=== PATIENT | female | born 1990 ===

== ENCOUNTER 2017-05-10 11:25 | Emergency (ER) | payer SELFPAY ==
[2017-05-10 11:48] VITALS: TEMP 98
--- NOTE | 2017-05-10 12:05 | ED PDOC ---
HPI: Trauma/Fall - HPI Time Seen by Provider: 05/10/17 11:34 Chief Complaint (Nursing): Trauma Chief Complaint (Provider): S/p Accidental Fall History Per: Patient History/Exam Limitations: no limitations Onset/Duration Of Symptoms: Hrs (morning prior to arrival ) Additional Complaint(s): Hina Hollis is a 26 year old female presenting to the ED status post accidental fall occurring this morning. The patient states while she was on a ladder this morning, she fell and landed on her buttocks/lower back area. The patient is complaining of pain to her buttocks and lower back area. She denies head injury, any injury to her extremities, loss of consciousness, chest pain, neck pain, arm pain, shoulder pain, hand pain, foot pain, shortness of breath, abdominal pain, dysuria, incontinence, urinary frequency, numbness, tingling, weakness, dizziness, or incoordination. PMD: None Provided Past Medical History Reviewed: Historical Data, Nursing Documentation, Vital Signs Vital Signs: Last Vital Signs Temp 98 F 05/10/17 11:42 Pulse 78 05/10/17 11:42 Resp 18 05/10/17 11:42 BP 151/83 H 05/10/17 11:42 Pulse Ox 99 05/10/17 11:42 - Medical History PMH: No Chronic Diseases - Family History Family History: States: Unknown Family Hx - Social History Current smoker - smoking cessation education provided: No Ex-Smoker (has not smoked in the last 12 months): No Alcohol: None Drugs: Denies - Home Medications Home Medications: Ambulatory Orders Medication Instructions Recorded Ibuprofen [Motrin] 600 mg PO TID 7 Days tab 05/10/17 - Allergies Allergies/Adverse Reactions: Allergies Allergy/AdvReac Type Severity Reaction Status Date / Time Penicillins Allergy RASH Verified 05/10/17 11:42 Review of Systems ROS Statement: Except As Marked, All Systems Reviewed And Found Negative Constitutional: Negative for: Weakness Cardiovascular: Negative for: Chest Pain Respiratory: Negative for: Shortness of Breath Gastrointestinal: Negative for: Abdominal Pain Genitourinary Female: Negative for: Dysuria, Frequency, Incontinence Musculoskeletal: Positive for: Back Pain (tenderness to lower back and buttocks area). Negative for: Neck Pain, Shoulder Pain, Arm Pain, Hand Pain, Foot Pain Neurological: Negative for: Weakness, Numbness, Incoordination, Headache, Dizziness Physical Exam - Reviewed Nursing Documentation Reviewed: Yes Vital Signs Reviewed: Yes - Physical Exam Appears: Positive for: Non-toxic, No Acute Distress Head Exam: Positive for: ATRAUMATIC, NORMOCEPHALIC Skin: Positive for: Normal Color, Warm, Dry Eye Exam: Positive for: Normal appearance, EOMI, PERRL ENT: Positive for: Normal ENT Inspection Neck: Positive for: Normal, Painless ROM Cardiovascular/Chest: Positive for: Regular Rate, Rhythm, Chest Non Tender Respiratory: Positive for: Normal Breath Sounds. Negative for: Respiratory Distress Gastrointestinal/Abdominal: Positive for: Normal Exam, Soft. Negative for: Tenderness Back: Positive for: Vertebral Tenderness (tenderness across lower back ) Extremity: Positive for: Other (right lower extremity: positive straight leg raise to 30 degrees; left lower extremity: negative straight leg raise ). Negative for: Deformity Neurologic/Psych: Positive for: Alert, Oriented (x3). Negative for: Motor/ Sensory Deficits - Laboratory Results Interpretation Of Abn Labs: bhcg less 2.39 - ECG O2 Sat by Pulse Oximetry: 99 (RA) Pulse Ox Interpretation: Normal - Radiology X-Ray: Interpreted by Me, Viewed By Me X-Ray Interpretation: No Acute Disease - Progress ED Course And Treament: 1522: Stable. AAOx3. Pain free. Tolerated PO. Fu with pcp. Ambulated with no issues. Medical Decision Making Medical Decision Making: Time: 11:34 Impression: S/p Accidental Fall with tenderness across lower back Plan: * ED urine * Urine Dip * Tylenol 325 mg tab 975 mg PO * [RAD] Lumbar Spine Complete * [RAD] Hip Min 2V W/ Pelvis Right * Reevaluation Scribe Attestation: Documented by Pearl Orona, acting as a scribe for Chino Huston MD. Provider Scribe Attestation: All medical record entries made by the Scribe were at my direction and personally dictated by me. I have reviewed the chart and agree that the record accurately reflects my personal performance of the history, physical exam, medical decision making, and the department course for this patient. I have also personally directed, reviewed, and agree with the discharge instructions and disposition. Disposition - Clinical Impression Clinical Impression: Back injury - Patient ED Disposition Is Patient to be Admitted: No Counseled Patient/Family Regarding: Studies Performed, Diagnosis, Need For Followup, Rx Given - Disposition Referrals: [facility] [Outside] - 05/11/17 Disposition: Routine/Home Disposition Time: 15:23 Condition: STABLE Additional Instructions: Return if not better in 3 days. Prescriptions: Ibuprofen [Motrin] 600 mg PO TID 7 Days tab Instructions: Acute Low Back Pain (ED) Print Language: DIVEHI
[2017-05-10 16:11] VITALS: BP 125/79; PULSE 81; RESP 16; O2SAT 100
--- NOTE | 2017-05-10 16:16 | RAD ---
PROCEDURE: Pelvis, right hip HISTORY: Pain. No history of recent/ related trauma provided COMPARISON: None TECHNIQUE: Standard protocol for this study/examination. FINDINGS: There are no osseous abnormalities to suggest fracture. The pelvic ring is intact. Preserved femoral-acetabular relationship. Negative study for protrusio, subluxation or dislocation. Degenerative changes: None. IMPRESSION: No significant or acute findings to account for/ related to the clinical presentation. Concordant results with the preliminary interpretation rendered by the emergency department physician procedure.
--- NOTE | 2017-05-10 16:16 | RAD ---
PROCEDURE: Radiographs of the Lumbar Spine. HISTORY: back pain COMPARISON: No prior. FINDINGS: BONES: Normal alignment. No listhesis. No fracture. DISC SPACES: Unremarkable. OTHER FINDINGS: Intrauterine contraceptive device (IUD) identified IMPRESSION: No significant or acute findings to account for/ related to the clinical presentation.
== END 2017-05-10 16:10 | disposition home or self-care (01) ==
LOC: H.ER 11:25
DX: S39.92XA Unspecified injury of lower back, initial encounter (principal); W11.XXXA Fall on and from ladder, initial encounter; Y92.89 Other specified places as the place of occurrence of the external cause; Z88.0 Allergy status to penicillin
CPT/HCPCS: 72114; 73502; 81025; 84702; 96372; 99285; J1885

== ENCOUNTER 2017-08-12 18:27 | Emergency (ER) | payer OTHER ==
[2017-08-12 18:53] VITALS: BP 145/68; PULSE 66; RESP 18; TEMP 98.7; O2SAT 98
--- NOTE | 2017-08-12 19:56 | ED PDOC ---
HPI: Female Pain Chief Complaint (Provider): vaginal bleeding History Per: Patient History/Exam Limitations: no limitations Onset/Duration Of Symptoms: Hrs Current Symptoms Are (Timing): Still Present Severity: Moderate Pain Scale Rating Of: 5 Quality Of Discomfort: Aching, Cramping (pelvic pain) Associated Symptoms: Nausea, Back Pain (lower back pain). denies: Fever, Chills , Vomiting, Urinary Symptoms Alleviating Factors: None Additional Complaint(s): 27 yr old presents to ED with complaint of vaginal bleeding (clots and tissue material) which started this morning and required 3 sanitary napkin changes throughout the day. PMHx includes padmini-metrorrhagia since menarche. Patient reports she had her IUD removed this past monday and started taking Orthotricyclen, she was also prescribed Metronidazole for a vaginal infection- she cannot recall her diagnosis. Her last vaginal bleeding was this past monday when she had sexual intercourse. Her IUD had been placed in 2014 and she had it removed because it caused her heavy vaginal bleeding and vaginal discharge. Associated symptoms include nausea, achy/crampy pelvic pain and achy lower back pain. Denies chest pain, SOB, dizziness or dysuria. Patient has not tried anything to alleviate the pain, nothing worsens the pain. PMD: [facility] ([address] [place] [address]) LMP: 03/2017 Last vaginal bleedin08/08/17-self limited after sexual intercourse ObGynHx: ; s/p pre-eclampsia 08/2014, vaginal infection dx on PMHx: obesity, padmini-metrorrhagia since menarche SurgHx: 08/2014 FMHx: non-contributory SocHx: denies tobacco/Etoh or drugs Medications: Orthocyclen Lo, Metronidazole 500mg PO BID x 14 days (on day 14) Allergies: Penicillin -rash and vomiting Abnormal Vaginal Bleeding: Yes Last Menstral Period: 5 months ago, has self limited vaginal bleeding with sexual intercourse : 1 Para: 1 <Katelin Logan - Last Filed: 08/12/17 21:58> <Ajit Lara - Last Filed: 08/12/17 22:14> Time Seen by Provider: 08/12/17 19:20 Chief Complaint (Nursing): Female Genitourinary Supervising Attending Note - Attestation: I have personally seen and examined this patient.: Yes I have fully participated in the care of the patient.: Yes I have reviewed all pertinent clinical information, including history, physical exam and plan: Yes <Ajit Lara - Last Filed: 08/12/17 22:14> Past Medical History Vital Signs: Last Vital Signs Temp 98.7 F 08/12/17 18:49 Pulse 66 08/12/17 18:49 Resp 18 08/12/17 18:49 BP 145/68 08/12/17 18:49 Pulse Ox 98 08/12/17 18:49 - Medical History PMH: No Chronic Diseases - Surgical History Surgical History: (08/2014 s/p pre-eclampsia) - Family History Family History: States: Unknown Family Hx - Living Arrangements Living Arrangements: Other (with son partner) - Social History Current smoker - smoking cessation education provided: No Alcohol: None Drugs: Denies <Katelin Logan - Last Filed: 08/12/17 21:58> Vital Signs: Last Vital Signs Temp 98.7 F 08/12/17 18:49 Pulse 66 08/12/17 18:49 Resp 18 08/12/17 18:49 BP 145/68 08/12/17 18:49 Pulse Ox 98 08/12/17 21:58 <Ajit Lara - Last Filed: 08/12/17 22:14> - Home Medications Home Medications: Ambulatory Orders Medication Instructions Recorded Ibuprofen [Motrin] 600 mg PO TID 7 Days tab 05/10/17 Ibuprofen [Motrin Tab] 600 mg PO Q6 #30 tab 08/12/17 - Allergies Allergies/Adverse Reactions: Allergies Allergy/AdvReac Type Severity Reaction Status Date / Time Penicillins Allergy RASH Verified 08/12/17 18:49 Review of Systems Constitutional: Negative for: Fever, Chills Eyes: Negative for: Vision Change ENT: Negative for: Ear Pain, Ear Discharge Cardiovascular: Negative for: Chest Pain, Palpitations, Edema, Light Headedness Respiratory: Negative for: Cough, Shortness of Breath Gastrointestinal: Positive for: Nausea, Abdominal Pain. Negative for: Vomiting , Diarrhea Genitourinary Female: Positive for: Vaginal Bleeding, Pelvic Pain. Negative for : Dysuria Musculoskeletal: Negative for: Neck Pain, Shoulder Pain Skin: Negative for: Rash, Lesions Neurological: Negative for: Weakness, Headache, Dizziness Psych: Negative for: Anxiety, Depression <Katelin Logan - Last Filed: 08/12/17 21:58> Physical Exam - Physical Exam Head Exam: Positive for: ATRAUMATIC, NORMOCEPHALIC Skin: Positive for: Normal Color, Warm, Dry. Negative for: Pallor Eye Exam: Positive for: EOMI, PERRL Neck: Positive for: Normal Cardiovascular/Chest: Positive for: Regular Rate, Rhythm. Negative for: Murmur Respiratory: Positive for: Normal Breath Sounds. Negative for: Rales, Rhonchi Pulses-Carotid (L): 2+ Pulses-Carotid (R): 2+ Pulses-Dorsalis Pedis (L): 2+ Pulses-Dorsalis Pedis (R): 2+ Pulses-Radial (L): 2+ Pulses-Radial (R): 2+ Gastrointestinal/Abdominal: Positive for: Soft, Tenderness (moderate tenderness in periumbilical and left upper and lower quadrant) Pelvic Exam: Positive for: Blood (blood clots in vaginal vault and at external cervical os, cervical os dilated fingertip). Negative for: No Cerv. Motion Tender, Cervicitis, Lesions Back: Positive for: Normal Inspection Extremity: Positive for: Normal ROM. Negative for: Pedal Edema, Calf Tenderness , Swelling Neurologic/Psych: Positive for: Alert, meat wrapper II-XII, Oriented, Mood/Affect (normal /normal), Gait (normal) <Katelin Logan - Last Filed: 08/12/17 21:58> - Laboratory Results Result Diagrams: 08/12/17 20:25 - ECG O2 Sat by Pulse Oximetry: 98 <Katelin Logan - Last Filed: 08/12/17 21:58> - Laboratory Results Result Diagrams: 08/12/17 20:25 <Ajit Lara - Last Filed: 08/12/17 22:14> Medical Decision Making Medical Decision Making: -Udip: negative -serum BHcg < 2.39, CBC wnl, CMP wnl, speculum exam: moderate amount blood/ clots in vaginal vault, external cervical os fingertip <Katelin Logan - Last Filed: 08/12/17 21:58> Disposition - Patient ED Disposition Is Patient to be Admitted: No - Disposition Disposition: Routine/Home Disposition Time: 21:51 <Katelin Logan - Last Filed: 08/12/17 21:58> <Ajit Lara - Last Filed: 08/12/17 22:14> - Clinical Impression Clinical Impression: Vaginal bleeding - Disposition Referrals: [facility] [Outside] Condition: FAIR Additional Instructions: Follow up with PMD within 1 week, continue home medications as prescribed, take Ibuprofen 600mg PO Q6 with food PRN for pain Prescriptions: Ibuprofen [Motrin Tab] 600 mg PO Q6 #30 tab Forms: [employer] (Kinyarwanda) Print Language: PALESTINIAN
[2017-08-12 20:40] LABS: BASO # 0.1 K/uL (0.0-0.2); BASO % 0.4 % (0.0-2.0); EOS # 0.1 K/uL (0.0-0.7); EOS % 0.6 % (0.0-4.0); HEMOGLOBIN 12.6 g/dL (12.0-16.0); LYMPH # 2.6 K/uL (1.0-4.3); LYMPH % 18.4 % (20.0-40.0); MEAN CELL VOLUME 92.5 fl (81.0-99.0); MEAN CORPUSCULAR HEMOGLOBIN 30.9 pg (27.0-31.0); MEAN CORPUSCULAR HGB CONC 33.4 g/dL (33.0-37.0); MEAN PLATELET VOLUME 10.2 fl (7.2-11.7); MONO # 0.8 K/uL (0.0-0.8); MONO % 5.5 % (0.0-10.0); NEUT # 10.5 K/uL (1.8-7.0); NEUT % 75.1 % (50.0-75.0); RBC 4.07 Mil/uL (3.80-5.20); RED CELL DISTRIBUTION WIDTH 12.9 % (11.5-14.5)
== END 2017-08-12 22:38 | disposition home or self-care (01) ==
LOC: H.ER 18:27
DX: N93.9 Abnormal uterine and vaginal bleeding, unspecified (principal); E66.9 Obesity, unspecified; Z88.0 Allergy status to penicillin

== ENCOUNTER 2017-08-30 14:11 | Emergency (ER) | payer OTHER ==
[2017-08-30 14:22] VITALS: BP 136/73; PULSE 64; RESP 18; TEMP 98; O2SAT 99
--- NOTE | 2017-08-30 14:36 | ED PDOC ---
HPI: Neurologic - General Time Seen by Provider: 08/30/17 14:28 Chief Complaint (Nursing): ENT Problem Source: patient - History of Present Illness Timing/Duration: 24 hours Severity: moderate Episode Description: Left facial weakness and numbness since yesterday. Unable to close left eye Associated Symptoms: denies: numbness in legs/feet, slurred speech, trouble walking, vision changes, weakness Allergies/Adverse Reactions: Allergies Penicillins Allergy (Verified 08/30/17 14:20) RASH Home Medications: Ambulatory Orders Ibuprofen [Motrin] 600 mg PO TID 7 Days tab 05/10/17 Ibuprofen [Motrin Tab] 600 mg PO Q6 #30 tab 08/12/17 Dextran 70/Hypromellose/Pf [Artificial Tears Drops] 1 drop OS Q2 #1 droperette 08/30/17 Valacyclovir HCl [Valtrex] 1 gm PO TID #30 tablet 08/30/17 predniSONE [predniSONE Tab] 10 mg PO TID #15 tab 08/30/17 Past Medical History Vital Signs: Last Vital Signs Temp 98 F 08/30/17 14:20 Pulse 64 08/30/17 14:20 Resp 18 08/30/17 14:20 BP 136/73 08/30/17 14:20 Pulse Ox 99 08/30/17 14:20 - Medical History PMH: No Chronic Diseases - Surgical History Surgical History: (08/2014 s/p pre-eclampsia) - Family History Family History: States: Unknown Family Hx - Home Medications Home Medications: Ambulatory Orders Medication Instructions Recorded Ibuprofen [Motrin] 600 mg PO TID 7 Days tab 05/10/17 Ibuprofen [Motrin Tab] 600 mg PO Q6 #30 tab 08/12/17 Dextran 70/Hypromellose/Pf 1 drop OS Q2 #1 droperette 08/30/17 [Artificial Tears Drops] Valacyclovir HCl [Valtrex] 1 gm PO TID #30 tablet 08/30/17 predniSONE [predniSONE Tab] 10 mg PO TID #15 tab 08/30/17 - Allergies Allergies/Adverse Reactions: Allergies Allergy/AdvReac Type Severity Reaction Status Date / Time Penicillins Allergy RASH Verified 08/30/17 14:20 Review of Systems ROS Statement: Except As Marked, All Systems Reviewed And Found Negative Neurological: Positive for: Weakness, Numbness (Left facial weakness and numbness) Physical Exam - Reviewed Nursing Documentation Reviewed: Yes Vital Signs Reviewed: Yes - Physical Exam Appears: Positive for: Non-toxic, No Acute Distress Head Exam: Positive for: ATRAUMATIC, NORMAL INSPECTION, NORMOCEPHALIC Skin: Positive for: Normal Color, Warm, DRY Eye Exam: Positive for: EOMI, Normal appearance, PERRL ENT: Positive for: Normal ENT Inspection Neck: Positive for: Normal, Painless ROM Cardiovascular/Chest: Positive for: Regular Rate, Rhythm Respiratory: Positive for: CNT, Normal Breath Sounds Gastrointestinal/Abdominal: Positive for: Normal Exam, Bowel Sounds, Soft Back: Positive for: Normal Inspection Extremity: Positive for: Normal ROM Neurologic/Psych: Positive for: Alert, Oriented, Motor/Sensory Deficits (Unable to close left eye, weakness left side of face, numbness left side of face) - ECG O2 Sat by Pulse Oximetry: 99 Disposition - Clinical Impression Clinical Impression: Lovell's palsy - Patient ED Disposition Is Patient to be Admitted: No Counseled Patient/Family Regarding: Studies Performed, Diagnosis, Need For Followup, Rx Given - Disposition Referrals: [facility] [Outside] Disposition: Routine/Home Disposition Time: 15:53 Condition: FAIR Prescriptions: Dextran 70/Hypromellose/Pf [Artificial Tears Drops] 1 drop OS Q2 #1 droperette predniSONE [predniSONE Tab] 10 mg PO TID #15 tab Valacyclovir HCl [Valtrex] 1 gm PO TID #30 tablet Instructions: Lovell Palsy (ED) Forms: [employer] (Cymro) Print Language: EGYPTIAN
--- NOTE | 2017-08-30 15:52 | CT ---
PROCEDURE: CT HEAD WITHOUT CONTRAST. HISTORY: left facial weakness COMPARISON: None available. TECHNIQUE: Axial computed tomography images were obtained through the head/brain without intravenous contrast. Radiation dose: Total exam DLP = 759 mGy-cm. This CT exam was performed using one or more of the following dose reduction techniques: Automated exposure control, adjustment of the mA and/or kV according to patient size, and/or use of iterative reconstruction technique. FINDINGS: HEMORRHAGE: No intracranial hemorrhage. BRAIN: No mass effect or edema. No atrophy or chronic microvascular ischemic changes. VENTRICLES: Unremarkable. No hydrocephalus. CALVARIUM: Unremarkable. PARANASAL SINUSES: Unremarkable as visualized. No significant inflammatory changes. MASTOID AIR CELLS: Unremarkable as visualized. No inflammatory changes. OTHER FINDINGS: None. IMPRESSION: Normal CT of the Head.
== END 2017-08-30 16:14 | disposition home or self-care (01) ==
LOC: H.ER 14:11
DX: G51.0 Bell's palsy (principal); Z88.0 Allergy status to penicillin

== ENCOUNTER 2017-10-20 19:28 | Emergency (ER) | payer SELFPAY ==
[2017-10-20 19:35] VITALS: BP 165/90; PULSE 94; RESP 16; TEMP 98.4; O2SAT 97
[2017-10-20] MEDS ORDERED: Lactated Ringer's 1,000 ML IV STA (19:53)
[2017-10-20 20:43] LABS: BASO % 0.2 % (0.0-2.0); EOS # 0.1 K/uL (0.0-0.7); EOS % 0.7 % (0.0-4.0); LYMPH # 1.9 K/uL (1.0-4.3); LYMPH % 19.5 % (20.0-40.0); MEAN CELL VOLUME 93.4 fl (81.0-99.0); MEAN CORPUSCULAR HEMOGLOBIN 32.3 pg (27.0-31.0); MEAN CORPUSCULAR HGB CONC 34.6 g/dL (33.0-37.0); MEAN PLATELET VOLUME 10.1 fl (7.2-11.7); MONO # 0.6 K/uL (0.0-0.8); MONO % 5.9 % (0.0-10.0); NEUT # 7.1 K/uL (1.8-7.0); NEUT % 73.7 % (50.0-75.0); RBC 4.03 Mil/uL (3.80-5.20); RED CELL DISTRIBUTION WIDTH 13.1 % (11.5-14.5); WHITE BLOOD COUNT 9.6 K/uL (4.8-10.8)
[2017-10-20 20:48] LABS: PARTIAL THROMBOPLASTIN TIME 31.2 Seconds (25.6-37.1)
--- NOTE | 2017-10-20 21:05 | ED PDOC ---
HPI: Female Pain Time Seen by Provider: 10/20/17 19:42 Chief Complaint (Nursing): Female Genitourinary Chief Complaint (Provider): Vaginal bleeding History Per: Patient History/Exam Limitations: no limitations Onset/Duration Of Symptoms: Sudden Onset (just prior to arrival) Current Symptoms Are (Timing): Still Present Additional Complaint(s): 27 yo 8 week female, A0, presents to the ED complaining of vaginal bleeding onset just prior to arrival. Of note, her last menstrual period was on 08/22/17 and she has a history of a . She comes in today because she soaked through underwear, about a pad's worth, and noted that her blood was bright red. She found out she was 1 month ago and has not started any care yet, but she scheduled an appointment with Clinic on November 01, 2017. : 2 Para: 1 Miscarriage: 0 Past Medical History Reviewed: Historical Data, Nursing Documentation, Vital Signs Vital Signs: Last Vital Signs Temp 98.4 F 10/20/17 19:33 Pulse 94 H 10/20/17 19:33 Resp 16 10/20/17 19:33 BP 165/90 H 10/20/17 19:33 Pulse Ox 97 10/20/17 19:33 - Medical History PMH: No Chronic Diseases - Surgical History Surgical History: (08/2014 s/p pre-eclampsia) - Family History Family History: States: Unknown Family Hx - Living Arrangements Living Arrangements: With Family - Social History Current smoker - smoking cessation education provided: No Ex-Smoker (has not smoked in the last 12 months): No Alcohol: None Drugs: Denies - Home Medications Home Medications: Ambulatory Orders Medication Instructions Recorded Ibuprofen [Motrin] 600 mg PO TID 7 Days tab 05/10/17 Ibuprofen [Motrin Tab] 600 mg PO Q6 #30 tab 08/12/17 Dextran 70/Hypromellose/Pf 1 drop OS Q2 #1 droperette 08/30/17 [Artificial Tears Drops] Valacyclovir HCl [Valtrex] 1 gm PO TID #30 tablet 08/30/17 predniSONE [predniSONE Tab] 10 mg PO TID #15 tab 08/30/17 Multivit/Folic Acid/I 1 tab PO DAILY #100 tab 10/20/17 [ Plus] - Allergies Allergies/Adverse Reactions: Allergies Allergy/AdvReac Type Severity Reaction Status Date / Time Penicillins Allergy RASH Verified 10/20/17 19:32 Review of Systems ROS Statement: Except As Marked, All Systems Reviewed And Found Negative Gastrointestinal: Positive for: Nausea, Vomiting. Negative for: Abdominal Pain , Diarrhea Genitourinary Female: Positive for: Vaginal Bleeding Physical Exam - Reviewed Nursing Documentation Reviewed: Yes Vital Signs Reviewed: Yes - Physical Exam Appears: Positive for: Non-toxic, No Acute Distress Head Exam: Positive for: ATRAUMATIC, NORMOCEPHALIC Skin: Positive for: Warm, Dry Eye Exam: Positive for: EOMI, PERRL ENT: Negative for: Pharyngeal Erythema, Tonsillar Exudate Neck: Positive for: Painless ROM, Supple Cardiovascular/Chest: Positive for: Regular Rate, Rhythm. Negative for: Murmur Respiratory: Positive for: Normal Breath Sounds. Negative for: Respiratory Distress Gastrointestinal/Abdominal: Positive for: Soft. Negative for: Tenderness, Mass , Distended, Guarding, Rebound Back: Positive for: Normal Inspection. Negative for: Decreased ROM Extremity: Positive for: Normal ROM. Negative for: Deformity Lymphatic: Negative for: Adenopathy Neurologic/Psych: Positive for: Alert. Negative for: Motor/Sensory Deficits - Laboratory Results Result Diagrams: 10/20/17 20:26 - ECG O2 Sat by Pulse Oximetry: 97 (RA) Pulse Ox Interpretation: Normal Medical Decision Making Medical Decision Making: Time: --19:52 Impression: --Vaginal bleeding in early Differential: -- includes but not limited to: threatened miscarriage; ectopic ; UTI; dehydration Plan: --blood type and screen --beta-hcg, quantitative ---ed urine dip --ed ureine --lactated ringer's --IV insertion --OB transvaginal US - Reassess -- EXAM: US , Transvaginal CLINICAL HISTORY: 27 years old, female; Signs and symptoms; Lmp or gestational age (in weeks): Unknown; Antepartum complications; Bleeding; ; Additional info: Vag bleed preg TECHNIQUE: Real-time transvaginal obstetrical ultrasound of the maternal pelvis and a first trimester with image documentation. Transvaginal imaging was used for better evaluation of the fetus and adnexa. COMPARISON: No relevant prior studies available. FINDINGS: Gestation: Single viable intrauterine with estimated gestational age based upon CRL measurement of 4.4 mm of 6 weeks 1 day. Cardiac activity is seen with a rate of 117 beats per minute. Placenta/amniotic fluid: Cannot be adequately evaluated due to the early gestational age. Uterus/cervix: Cervix measures 4.3 cm in length and is closed. No myometrial mass. Ovaries: Unremarkable. No mass. Free fluid: No free fluid. IMPRESSION: Single viable intrauterine as described. No acute findings. Thank you for allowing us to participate in the care of your patient. Dictated and Authenticated by: Nasir Lopez MD 10/20/2017 9:08 PM Eastern Time ([place] & [place]) Labs unremarkable. Rh + DW [facility] resident, for more urgent follow up appointment with [facility]. Appt will be arranged for next week. Pt will be called Monday for schedulling DW pt findsing and plan of care. Bleeding instructions and reviewed reasons to RTER. Scribe Attestation: Documented by Scott Dos Santos acting as a scribe for Dudley Vasquez MD. Provider Attestation: All medical record entries made by the Scribe were at my direction and personally dictated by me. I have reviewed the chart and agree that the record accurately reflects my personal performance of the history, physical exam, medical decision making, and the department course for this patient. I have also personally directed, reviewed, and agree with the discharge instructions and disposition. Disposition - Clinical Impression Clinical Impression: Threatened Counseled Patient/Family Regarding: Studies Performed, Diagnosis, Need For Followup, Rx Given - [facility]position [facility] - [facility]23[facility]17 Disposition: Routine/Home Disposition Time: 21:30 Condition: GOOD Additional Instructions: LA [facility] TE [facility] EL ES PARA PROGRAMAR JEANINE FIORDALIZA ESTA SEMANA DESCANSE Y AGUSTIN MUCHO RONNA REGRESA A LA GISELL DE EMERGENCIA SI ESTA [place] MAS QUE JEANINE KOTEX CADA JEANINE HORA, MUCHO DOLOR, PERDI CONOSIMIENTO, O OTRAS MALAS SINTOMAS. Prescriptions: Multivit/Folic Acid/I [ Plus] 1 tab PO DAILY #100 tab Instructions: Threatened Miscarriage (DC) Print Language: TOGOLESE
--- NOTE | 2017-10-21 09:17 | US ---
PROCEDURE: OB Pelvic Ultrasound HISTORY: vag bleed preg COMPARISON: None available. FINDINGS: UTERUS: Gestational sac: Single intrauterine gestation. Measures 2.5 cm compatible with estimated gestational age of 7 weeks, 1 day. Yolk sac: Measures 0.3 cm. pole: [place]-rump length measures 0.4 cm compatible with estimated gestational age of 6 weeks, 1 day. Heart rate: 119 bpm. age (Ultrasound estimated): 6 weeks, 5 days Simi-gestational hemorrhage: None. Date of delivery (Ultrasound estimated) : 06/10/2018 Uterus measures 8.4 x 4.9 x 5.4 cm. Normal in size and appearance. CERVIX: Measures 4.3 cm. Long and closed. No cervical abnormality seen. RIGHT OVARY: Measures 2.4 x 2.2 x 2.1 cm. No mass lesion. Normal flow. LEFT OVARY: Measures 2.3 x 1.6 x 2.1 cm. No solid mass. Normal flow. FREE FLUID: None. OTHER FINDINGS: None. IMPRESSION: Single live intrauterine gestation with average ultrasound age of 6 weeks, 5 days. heart rate 119 beats per minute. Cervix long and closed.
== END 2017-10-20 22:26 | disposition home or self-care (01) ==
LOC: H.ER 19:28
DX: O20.0 Threatened abortion (principal); Z3A.08 8 weeks gestation of pregnancy; Z88.0 Allergy status to penicillin
CPT/HCPCS: 76817; 84702; 85025; 85610; 85730; 86850; 86900; 99283; J7120

== ENCOUNTER 2018-05-04 13:37 | Emergency (ER) | payer SELFPAY ==
[2018-05-04 13:51] VITALS: BMI 36.3
[2018-05-04] MEDS ORDERED: Betamethasone Soluspan 30 mg/5mL Inj Susp IM ONE (15:30)
[2018-06-21 14:42] VITALS: BP 120/70; PULSE 90; RESP 18; TEMP 98.1; O2SAT 96
== END 2018-05-04 16:10 | disposition home or self-care (01) ==
LOC: H.EROB2 13:37
DX: O09.93 Supervision of high risk pregnancy, unspecified, third trimester (principal); Z23 Encounter for immunization; Z3A.34 34 weeks gestation of pregnancy

== ENCOUNTER 2018-05-05 14:52 | Emergency (ER) | payer SELFPAY ==
[2018-05-05 15:05] VITALS: BMI 34.0
[2018-05-05] MEDS: Betamethasone Soluspan 30 mg/5mL Inj Susp IM ONE (15:45)
[2018-05-05 20:30] VITALS: BP 118/72; PULSE 64
--- NOTE | 2018-05-05 21:57 | OBHP ---
Datetime: 05/05/2018 15:11 IP Adm Impression: , intrauterine ; No Active Labor IP Chief Complaint Other: Here for methotrexate injection IP Admit Plan: Discharge home Admit Comment, IP Provider: HPI: 27 yo at 34.6 sent over from clinic for 2nd dose of Celestone shot. She has no current complaints. Denies vaginal bleeding, contractions, or gush of fluid via the vagina. Reports good movement. ROS: negative ObHx: Previous pre-eclampsia with severe features at 39 weeks, delivered via PMH: Denies PSH: Family History: Denies Medications: PNV, Aspirin 81mg; Ferrous sulfate 325mg po daily . Allergies: Penicillin- rash OBJECTIVE Heart: S1 and S2 appreciated. No murmurs, gallops or rubs. Lungs: clear air entry bilaterally. Abdomen: Soft, non-tender to palpation, gravid. BP range: 115-129/62-74; HR:82-84 labs: Unavailable Assessment/Plan: 27 yo at 34.5 sent from clinic for 2nd betamethasone shot. She has close mon itoring by [facility] for her history of preeclampsia. Stable blood pressures during triage time and no alar m symptoms present at this time to suggest preeclampsia. Patient has lab work planned for next week. - 12mg Betamethsone given - Patient will follow up with Dr. Alonzo and Dr. Guerrero 05/08/18 (appt scheduled) Discussed with Dr. Anthony Costa, PGY-1 MD [employer] Patient was discussed with the resident and I agree with the above. Pelvic Type - PN: Not Done Extremities - PN: Not Done Abdomen - PN: Normal Back - PN: Not Done Breast - PN: Not Done Lungs - PN: Normal Heart - PN: Normal Thyroid - PN: Not Done Neurologic - PN: Not Done HEENT - PN: Not Done General - PN: Normal FHR - Baseline A Provider: 150 Gestation - Est Wks by US: 34.6 EGA AdmitDate IP: 34.6 Vital Signs Provider: Reviewed; Within Normal Limits IP Chief Complaint: Other NICHD Variability Prov Fetus A: Moderate 6-25bpm NICHD Accel Fetus A IP Provider: 10X10 FHR Category Provider Fetus A: Category I NICHD Decel Fetus A IP Provider: None Genitourinary Exam: Not Done DTRs - PN: Not Done
== END 2018-05-05 16:00 | disposition home or self-care (01) ==
LOC: H.EROB2 14:52
DX: O09.293 Supervision of pregnancy with other poor reproductive or obstetric history, third trimester (principal); Z3A.34 34 weeks gestation of pregnancy; Z23 Encounter for immunization
CPT/HCPCS: 96372; 99281; J0702

== ENCOUNTER 2018-05-08 10:09 | Emergency (ER) | payer SELFPAY, MEDICAID ==
[2018-05-08 11:16] VITALS: BMI 34.2
[2018-05-08 11:41] LABS: SQUAMOUS EPITHIAL 8 /hpf (0-5); URINE BACTERIA MOD (<OCC); URINE BILIRUBIN NEGATIVE (NEGATIVE); URINE BLOOD NEGATIVE (NEGATIVE); URINE CLARITY CLOUDY (Clear); URINE COLOR YELLOW (YELLOW); URINE GLUCOSE (UA) NEG (Normal); URINE LEUKOCYTE ESTERASE NEG Leu/uL (Negative); URINE PROTEIN NEGATIVE (NEGATIVE); URINE UROBILINOGEN 0.2-1.0 mg/dL (0.2-1.0)
[2018-05-08 16:54] VITALS: BP 130/73; PULSE 79; RESP 18; TEMP 98.5
--- NOTE | 2018-05-09 07:47 | OBHP ---
Datetime: 05/08/2018 11:37 IP Adm Impression: , intrauterine ; No Active Labor; Intact Membranes IP Admit Plan: Observation/Evaluation; Discharge home Admit Comment, IP Provider: 27-year-old at 35.2 (confirmed via 1st tri ultrasound at 6 weeks) p resents for lower abdominal and lower back pain. Pain has been present since 6 pm laast night, about 16 hours prior to presentation, and is worse when she is lying down and walking. She also complains o f mild pain with urinating with white discharge also present since yesterday. Her previous resulted in an emergency CS due to preeclampsia and rising BP. Her BP thorugh this has been WNL as per patient. She is seen in [facility] and has her next appointment today. Pain is lower abdomen and radiates to the lower back. she denies loss of fluid or vaginal bleeding and reports good move ment. She has mild headaches and threw up yesterday twice but denies change in vision, syncope, chest pain, shortness of breath and diarrhea. : CHF - Dr Guerrero PMH: denies Allergies: Penicillin - itching rash Meds: ASA 81 through Social: denies Family: noncontributory OBHx: 1 x C/S d/t severe preeclampsia 2014 (LFTs and HTN) ROS: She has mild headaches and threw up yesterday twice but denies change in vision, syncope, juan st pain, shortness of breath and diarrhea. PE: comfortable, in no acute distress CV: RRR Resp: no respiratory distress Abd: no tenderness to palpation, no RUQ pain Pelvic: clinical manager home care present. /0/-3. no blood seen. no lesions noted. Labs: GBS unknown, HIV neg, GC/CL neg, HbsAg neg, RPR unknown, Rubella immune, Bloods (O+ antibody neg) Assessment: 27-year-old at 35.2 (confirmed via 1st tri ultrasound at 6 weeks) presents for lo wer abdominal pain, lower back pain and urinary pain with dark white discharge (16 hours after onset) . Plan: -NST: reactive, Category 1 tracing (FHR 130, accelerations 15x15, no decelerations, moderate varia bility) -No contractions noted on tracing -VE: 1/0/-3, no blood, no lesions -Urinalysis and Culture sent, patient given Macrobid RX and will fill only if lab test results ind icate UTI - confirmed patient contact number and will contact -Due to reassuring EFM, pelvic exam and patient in no active labor she was cleared for discharge t o home -Next CF appt today, 05/08 -Discussed signs and symptoms warranting emergent return to OB ED -5:10 pm 05/08: Spoke to patient - UA was noted to have moderate bacteria and 8 squam, patient was instructed to fill Macrobid RX (penicillin allergy) and complete the course. ECW telephone encounter noted, culture sent, please follow up and adjust accordingly. Case discussed with Dr. Hill --Dilma Davey, PGY1 OB Hospitalist on-call. Iwth PGY1, I saw an dexamined thispatinet. Agree wit note. Pt was conta cted to take Macrobid. Follow up Urine culture ([facility]) MAHNDO Pelvic Type - PN: Adequate Extremities - PN: Normal Abdomen - PN: Normal Back - PN: Not Done Breast - PN: Not Done Lungs - PN: Normal Heart - PN: Normal Thyroid - PN: Not Done Neurologic - PN: Not Done HEENT - PN: Normal General - PN: Normal Presentation-Admit: Vertex FHR - Baseline A Provider: 130 Membranes, Provider: Intact Comments, ACOG Physical Exam: Back no CVA tenderness IP Hx Assessment: The History has been Reviewed and is Current EGA AdmitDate IP: 35.2 Vital Signs Provider: Reviewed; Within Normal Limits IP Chief Complaint: Maternal discomfort NICHD Variability Prov Fetus A: Moderate 6-25bpm NICHD Accel Fetus A IP Provider: 15X15 FHR Category Provider Fetus A: Category I NICHD Decel Fetus A IP Provider: None Dilatation, Provider: 1 Effacement, Provider: 0 Station, Provider: -3 Genitourinary Exam: Not Done DTRs - PN: Not Done
--- NOTE | 2018-05-09 07:47 | OBDCSUM ---
Datetime: 05/08/2018 11:35 Discharge Diagnosis, Provider: False Labor - Undelivered
== END 2018-05-08 11:45 | disposition home or self-care (01) ==
LOC: H.EROB2 10:09 → H.L&D 10:23 → H.EROB2 11:45
DX: O26.93 Pregnancy related conditions, unspecified, third trimester (principal); R10.2 Pelvic and perineal pain; M54.5 Low back pain; Z3A.36 36 weeks gestation of pregnancy; Z87.59 Personal history of other complications of pregnancy, childbirth and the puerperium; R30.0 Dysuria; N89.8 Other specified noninflammatory disorders of vagina

== ENCOUNTER 2018-05-11 10:53 | Emergency (ER) | payer SELFPAY ==
[2018-05-11 12:05] VITALS: BMI 40.5
[2018-05-11 12:19] LABS: BASO % 0.4 % (0.0-2.0); EOS # 0.1 K/uL (0.0-0.7); EOS % 1.1 % (0.0-4.0); HEMOGLOBIN 11.5 g/dL (12.0-16.0); LYMPH # 1.4 K/uL (1.0-4.3); LYMPH % 12.9 % (20.0-40.0); MEAN CORPUSCULAR HGB CONC 33.7 g/dL (33.0-37.0); MEAN PLATELET VOLUME 11.5 fl (7.2-11.7); MONO # 0.5 K/uL (0.0-0.8); MONO % 4.8 % (0.0-10.0); NEUT # 8.8 K/uL (1.8-7.0); NEUT % 80.8 % (50.0-75.0); NRBC % 0.1 % (0.0-0.0); RBC 3.69 Mil/uL (3.80-5.20); WHITE BLOOD COUNT 10.9 K/uL (4.8-10.8)
[2018-05-11 12:44] LABS: ALB/GLOB RATIO 0.9 (1.0-2.1); ALBUMIN 3.2 g/dL (3.5-5.0); ALT/SGPT 151 U/L (9-52); AST/SGOT 101 U/L (14-36); BLOOD UREA NITROGEN 10 mg/dl (7-17); CALCIUM 9.3 mg/dL (8.4-10.2); GFR NON-AFRICAN AMERICAN > 60
[2018-05-11 14:51] LABS: AMYLASE 59 U/L (30-110); LIPASE 36 U/L (23-300)
--- NOTE | 2018-05-11 17:46 | OBHP ---
Datetime: 05/11/2018 12:01 IP Adm Impression: , intrauterine IP Chief Complaint Other: Elevated LFTs IP Admit Plan: Observation/Evaluation; Discharge home Admit Comment, IP Provider: HPI: 27 year old at 35.5 weeks (dating via 1st trimester US) sent t o triage for further evaluation of persistently elevated LFTs. She has a history of preeclampsia in h er previous and therefore has had frequent lab testing and MFM evaluations with this pregna ncy. Her baseline LFTs were found to be elevated with an AST in the 80s and an ALT in the 60s. Subseq uent CMPs have shown persistently elevated LFTs with normal blood pressures. She did however develop intermittently elevated BPs in the last few weeks of her and was given a prescription yeste rday at her MFM appointment for labetolol 200mg BID (which she has not yet filled). Dr. Alonzo did now have her 05/09 labs for review yesterday and therefore could not make further management recommen dations. This morning his office obtained the labs and it was noted that her LFTs doubled from 05/04 to 05/09, so she was sent here for further evaluation. Currently denies vision changes, headache, RUQ pain or new onset edema. ROS: as above, otherwise negative : CHF - Dr Guerrero PMH: denies Allergies: Penicillin - itching rash Meds: ASA 81 Social: denies Family: noncontributory OBHx: 1 x C/S d/t severe preeclampsia 2014 (LFTs and HTN) OBJECTIVE BP Labs: GBS unknown, HIV neg, GC/CL neg, HbsAg neg, RPR unknown, Rubella immune, Bloods (O+ antibody neg) LFTs - AST/ALT 73/71 on 05/04, AST/ALT 124/195 on 05/09, today's labs AST/ALT 101/151 Plts - 137 today (same as previous) Assessment/Plan: 27 year old at 35.5 weeks seen here in triage for repeat evaluation of LFTs and rule out pre-eclampsia. During her evaluation in triage her BPs all remained within normal limits (aside from first BP when she was triaged which quickly normalized). Her LFTs today have decreased c ompared to May 04, and her other HELLP labs are within normal limits. At this time she is not meeti ng criteria for preeclampsia or HELLP syndrome and there is no indication for expedited delivery. Bernadette medina was discussed with Dr. Alonzo, who felt comfortable discharging her home at this point with a rep eat 24 hr urine collection. We also added on an amylase and lipase, which were normal, and sent out b ile acids and a GGT. She will return to triage on Monday to drop off her urine, get an NST and BPP an d have a repeat CMP. Her EFM remained Category 1 the entire time she was in triage. The patient was i n agreement with the plan and all questions were answered using an foreign correspondent. Nadege Casas MD OB Fellow OB Hospitalist Addendum: Pt seen and examined by me. Agree w/ above. at 35+5 wks w/ pers istently elevated LFTs sent to [facility] for further eval. Pt denies sx of PEC although reports itching d /t gardening. FHT reactive. LFTs were lower today. Hgb, platelets stable. Case discussed w/ Dr. Mono benjamin who recommended labs to be added. Amylase/ lipase nl. Bile acids and GGT are pending. Pt di scharged home w/ 24 hr urine rx and told to returin to OB ED on , 05/14/2018 for NST/ BPP and rep eat labs. Pt given PEC precautions. (ES) Extremities - PN: Normal Abdomen - PN: Normal Lungs - PN: Normal Heart - PN: Normal Neurologic - PN: Normal General - PN: Normal Comments, ACOG Physical Exam: General: pleasant, awake and alert, no acute distress HEENT: mucous membranes moist, EOMI Respiratory: CTAB CV: RRR Abdomen: no RUQ tenderness Excoriations on her legs Gestation - Est Wks by US: 36.5 EGA AdmitDate IP: 36.5 Vital Signs Provider: Reviewed Vital Signs Provider Details: Initial BP 144/69, repeat 128/59 IP Chief Complaint: Signs/Symptoms Gestational HTN
[2018-05-11 20:31] LABS: GAMMA GLUTAMYL TRANSPEPTIDASE 114 U/L (8-78)
[2018-05-12 01:32] VITALS: BP 125/69; PULSE 65; RESP 18; TEMP 98.2; O2SAT 100
[2018-05-14 18:42] LABS: CHENODEOXYCHOLIC ACID 9.3 umol/L (< OR = 3.9)
[2018-05-15 04:32] LABS: CREATININE, 24 HOUR URINE 1.41 g/24 h (0.63-2.50)
[2018-05-15 15:05] LABS: ALBUMIN 26.4 Relative %
== END 2018-05-11 17:30 | disposition home or self-care (01) ==
LOC: H.EROB2 10:53 → H.EROB 11:42 → H.EROB2 17:30
DX: O26.93 Pregnancy related conditions, unspecified, third trimester (principal); R79.89 Other specified abnormal findings of blood chemistry; O09.93 Supervision of high risk pregnancy, unspecified, third trimester; Z3A.36 36 weeks gestation of pregnancy

== ENCOUNTER 2018-05-13 13:00 | Emergency (ER) | payer SELFPAY ==
[2018-05-13 13:03] VITALS: BMI 40.5
[2018-05-13 13:57] VITALS: BP 132/80; PULSE 78; RESP 18; TEMP 97.4; O2SAT 99
--- NOTE | 2018-05-13 14:42 | ED PDOC ---
HPI: CCC, URI, Sore Throat Time Seen by Provider: 05/13/18 13:58 Chief Complaint (Nursing): ENT Problem Chief Complaint (Provider): ENT Problem History Per: Patient History/Exam Limitations: no limitations Additional Complaint(s): Patient is a 27 y/o female who presents to the ED for evaluation of right sided nose bleed that started at 03:00 and resolved, started again at 10:00 and resolved and started again at 12:30 and resolved. Patient denies any trauma. Patient is 36 weeks currently. She has no other complaints at this time. She states she took aspirin earlier today and his taking antibiotics for UTI but cannot recall the name of the antibiotic. Patient reports each bleeding episode lasted 5 to 10 minutes and resolved spontaneously. She denies any complaints related to her including but not limited to abdominal pain, vaginal bleeding, nausea, or vomiting. She denies any recent fever. Her last normal menstrual period was in July. PMD: Ruth Ann Past Medical History Reviewed: Historical Data, Nursing Documentation, Vital Signs Vital Signs: Last Vital Signs Temp 97.4 F L 05/13/18 13:54 Pulse 78 05/13/18 13:54 Resp 18 05/13/18 13:54 BP 132/80 05/13/18 13:54 Pulse Ox 99 05/13/18 13:54 - Medical History PMH: No Chronic Diseases - Surgical History Surgical History: (08/2014 s/p pre-eclampsia) - Family History Family History: States: Unknown Family Hx - Home Medications Home Medications: Ambulatory Orders Medication Instructions Recorded Ibuprofen [Motrin] 600 mg PO TID 7 Days tab 05/10/17 RX: Ibuprofen [Motrin Tab] 600 mg PO Q6 #30 tab 08/12/17 Dextran 70/Hypromellose/Pf 1 drop OS Q2 #1 droperette 08/30/17 [Artificial Tears Drops] RX: predniSONE [predniSONE Tab] 10 mg PO TID #15 tab 08/30/17 Valacyclovir HCl [Valtrex] 1 gm PO TID #30 tablet 08/30/17 Multivit/Folic Acid/I 1 tab PO DAILY #100 tab 10/20/17 [ Plus] - Allergies Allergies/Adverse Reactions: Allergies Allergy/AdvReac Type Severity Reaction Status Date / Time Penicillins Allergy Mild RASH Verified 05/15/18 12:17 Review of Systems ROS Statement: Except As Marked, All Systems Reviewed And Found Negative Constitutional: Negative for: Fever ENT: Positive for: Nose Discharge (bloody nose) Gastrointestinal: Negative for: Nausea, Vomiting, Abdominal Pain Genitourinary Female: Negative for: Vaginal Bleeding Physical Exam - Reviewed Nursing Documentation Reviewed: Yes Vital Signs Reviewed: Yes - Physical Exam Comments: GENERAL APPEARANCE: Patient is awake, alert, oriented x 3, in no acute distress. Resting comfortably. EYES: (-) conjunctival pallor, (-) scleral icterus, (-) nystagmus. ENMT: Nares are patent (-) dried blood (-) active bleeding. (+) erythema to bilateral inferior turbinates. Pharynx: clear, uvula midline (-) exudate (-) erythema. HEART AND CARDIOVASCULAR: (-) irregularity CHEST AND RESPIRATORY: (-) rales, (-) rhonchi, (-) wheezes; breath sounds equal bilaterally. Respirations even and nonlabored. ABDOMEN: Gravid but (-) tenderness (-) CVA tenderness. NEURO AND PSYCH: Mental status as above. Gait: steady. Speech: clear. (-) facial asymmetry (-) focal deficit. - Laboratory Results Result Diagrams: 05/13/18 14:30 - ECG O2 Sat by Pulse Oximetry: 99 (RA) Pulse Ox Interpretation: Normal Medical Decision Making Medical Decision Making: Time: 14:10 Impression: epistaxis - resolved Initial Plan: CBC w/ diff PTT PT/INR Re-evaluation 1515 Labs reviewed and grossly unremarkable. H&H stable. Coag profile WNL. Patient with no epistaxis in ED. On re-evaluation, patient offers no complaints. On exam, patient remains AAOx3, in no acute distress. Lungs clear to auscultation, cardiac RRR, repeat neuro exam shows no focal findings. Vitals stable. Lab /Diagnostic results d/w the patient in great detail. Diagnosis of epistaxis d/w the patient. Based on history, exam and diagnostic results, plan will be for follow up with OBGYN. Patient instructed to follow-up with pmd / referral provided / the clinic in 1- 2 days without fail. Return to the emergency room at any time for any new or worsening symptoms. Patient states she fully agrees with and understands discharge instructions. States that she agrees with the plan and disposition. Verbalized and repeated discharge instructions and plan. I have given the patient opportunity to ask any additional questions. - Scribe Attestation: Documented by Fan Jackman, acting as a scribe for Kristi Torres PA-C Provider Scribe Attestation: All medical record entries made by the Scribe were at my direction and personally dictated by me. I have reviewed the chart and agree that the record accurately reflects my personal performance of the history, physical exam, medical decision making, and the department course for this patient. I have also personally directed, reviewed, and agree with the discharge instructions and disposition. Disposition - Clinical Impression Clinical Impression: Epistaxis - Patient ED Disposition Is Patient to be Admitted: No Counseled Patient/Family Regarding: Studies Performed, Diagnosis, Need For Followup - Disposition Referrals: Kristi Vallecillo MD [Staff Provider] - Disposition: Routine/Home Disposition Time: 15:15 Condition: STABLE Additional Instructions: La atencin mdica de emergencia que recibi hoy se dirigi a denton sntomas agudos. Si le recetaron algn medicamento, llnelo y tmelo segn las indic aciones. Los sntomas pueden tardar varios martínez en resolverse. Regrese al Departamento de Emergencias si denton sntomas empeoran, no mejoran o si tiene otros problemas. Comunquese con gong mdico dentro de 2 martínez para quintin nueva evaluacin y angella un seguimiento o llame a lois de los mdicos / clnicas a los que kaur sido referido y que figuran en el formulario de Informacin de visita al paciente que se incluye en gong paquete de jessi. Lleve con usted a gong consulta de seguimiento toda la documentacin que recibi del jessi junto con los medicamentos que est tomando. Nuestro tratamiento no puede reemplazar la atencin mdica continua por parte de un proveedor de atencin primaria (PCP) fuera del departamento de emergencias. Instructions: Nosebleeds Forms: [email or web address] Connect (Romansh) Print Language: VENEZUELAN - POA Present On Arrival: None Results - Lab Results Lab Results: 05/13/18 05/13/18 14:30 14:30 WBC 10.8 RBC 3.57 L Hgb 11.0 L Hct 33.0 L MCV 92.2 MCH 30.8 MCHC 33.3 RDW 14.2 Plt Count 137 MPV 11.8 H Neut % (Auto) 80.2 H Lymph % (Auto) 12.2 L [place] % (Auto) 5.9 Eos % (Auto) 1.0 Baso % (Auto) 0.7 Neut # (Auto) 8.6 H Lymph # (Auto) 1.3 [place] # (Auto) 0.6 Eos # (Auto) 0.1 Baso # (Auto) 0.1 PT 10.3 INR 0.9 APTT 28.9
[2018-05-13 14:43] LABS: BASO # 0.1 K/uL (0.0-0.2); BASO % 0.7 % (0.0-2.0); EOS # 0.1 K/uL (0.0-0.7); LYMPH # 1.3 K/uL (1.0-4.3); LYMPH % 12.2 % (20.0-40.0); MEAN CELL VOLUME 92.2 fl (81.0-99.0); MEAN CORPUSCULAR HEMOGLOBIN 30.8 pg (27.0-31.0); MEAN CORPUSCULAR HGB CONC 33.3 g/dL (33.0-37.0); MEAN PLATELET VOLUME 11.8 fl (7.2-11.7); MONO # 0.6 K/uL (0.0-0.8); MONO % 5.9 % (0.0-10.0); NEUT # 8.6 K/uL (1.8-7.0); NEUT % 80.2 % (50.0-75.0); RBC 3.57 Mil/uL (3.80-5.20); RED CELL DISTRIBUTION WIDTH 14.2 % (11.5-14.5); WHITE BLOOD COUNT 10.8 K/uL (4.8-10.8)
[2018-05-13 14:52] LABS: INR 0.9; PROTHROMBIN TIME 10.3 Seconds (9.8-13.1)
[2018-05-13 14:55] LABS: PARTIAL THROMBOPLASTIN TIME 28.9 Seconds (25.6-37.1)
== END 2018-05-13 15:22 | disposition home or self-care (01) ==
LOC: H.ER 13:00
DX: R04.0 Epistaxis (principal); Z3A.36 36 weeks gestation of pregnancy; Z88.0 Allergy status to penicillin

== ENCOUNTER 2018-05-15 11:48 | Emergency (ER) | payer SELFPAY ==
[2018-05-15 12:07] VITALS: BMI 34.4
[2018-05-15 12:33] LABS: HEMOGLOBIN 11.3 g/dL (12.0-16.0); MEAN CORPUSCULAR HEMOGLOBIN 30.7 pg (27.0-31.0); MEAN CORPUSCULAR HGB CONC 33.8 g/dL (33.0-37.0); RBC 3.67 Mil/uL (3.80-5.20); WHITE BLOOD COUNT 11.8 K/uL (4.8-10.8)
[2018-05-15 12:46] LABS: ALB/GLOB RATIO 0.9 (1.0-2.1); ALBUMIN 3.2 g/dL (3.5-5.0); ALT/SGPT 131 U/L (9-52); AST/SGOT 110 U/L (14-36); BLOOD UREA NITROGEN 11 mg/dl (7-17); CALCIUM 9.1 mg/dL (8.4-10.2); GFR NON-AFRICAN AMERICAN > 60
[2018-05-15 17:41] VITALS: BP 135/74; PULSE 78; RESP 18; TEMP 98
== END 2018-05-15 13:15 | disposition home or self-care (01) ==
LOC: H.EROB2 11:48
DX: O26.93 Pregnancy related conditions, unspecified, third trimester (principal); O28.8 Other abnormal findings on antenatal screening of mother; R94.5 Abnormal results of liver function studies; Z3A.36 36 weeks gestation of pregnancy; Z87.59 Personal history of other complications of pregnancy, childbirth and the puerperium